=== PATIENT | female | born 1935 | race Caucasian/White ===

== ENCOUNTER 2022-12-11 14:04 | Emergency (ER) | payer MEDICARE ==
[2022-12-11] MEDS ORDERED: Acetaminophen 500 MG TAB ONE (15:01)
== END 2022-12-11 17:16 ==
LOC: ERS 14:04
DX: S63.651A Sprain of metacarpophalangeal joint of left index finger, initial encounter (principal); I12.9 Hypertensive chronic kidney disease with stage 1 through stage 4 chronic kidney disease, or unspecified chronic kidney disease; N18.9 Chronic kidney disease, unspecified; W05.0XXA Fall from non-moving wheelchair, initial encounter; Z79.01 Long term (current) use of anticoagulants; Z79.899 Other long term (current) drug therapy
CPT/HCPCS: 70450; 72125

== ENCOUNTER 2023-03-11 08:02 | Inpatient (IN) | payer MEDICARE, MEDICAID ==
[2023-03-11] MEDS ORDERED: Aspirin Chewable 81 MG TAB ONE (08:23)
[2023-03-11] MEDS ORDERED: Iopamidol-370 76% 500 ML MDV (1 ML CHARGE) ONE (08:34)
[2023-03-11 08:50] LABS: Hemoglobin 14.5 g/dL (12.0-16.0); Mean Corpuscular HGB CONC 33.1 g/dL (32.0-36.0); Mean Corpuscular Volume 96.6 fl (78.0-98.0); Platelet Count 186 10x3/uL (130-400); RBC Distribution Width 12.3 % (11.5-14.5); Red Blood Cell (RBC) Count 4.53 mill/uL (4.20-5.40); White Blood Cell (WBC) Count 14.9 10x3/uL (4.8-10.8)
[2023-03-11 08:57] LABS: INR-International Normal Ratio 1.4; Prothrombin Time 17.6 sec (12.0-14.7)
[2023-03-11 08:58] LABS: PTT 37.6 sec (22.9-36.1)
[2023-03-11 09:12] LABS: Band 24 % (5-11); Lymphocytes 12 % (21-51); MDiff Complete? YES; Monocytes 7 % (0-10); Neutrophil 57 % (42-75); RBC Morphology Normal
[2023-03-11 09:14] LABS: ALT (SGPT) 13 U/L (8-55); AST (SGOT) 25 U/L (5-34); Albumin 3.7 g/dL (3.4-4.8); Alkaline Phosphatase 105 U/L (40-110); Anion Gap 17 mmol/L (10-20); BUN (Urea Nitrogen) 44 mg/dL (9.8-20.1); Bilirubin, Total 1.2 mg/dL (0.2-1.2); Calc. Creatinine Clearance 0 mL/min (70-130); Calcium 9.9 mg/dL (7.8-10.44); Carbon Dioxide 17 mmol/L (23-31); Chloride 105 mmol/L (98-107); Estimated GFR 35; Globulin 3.1 g/dL (2.4-3.5); Glucose 112 mg/dL (83-110); Potassium 4.1 mmol/L (3.5-5.1); Protein, Total 6.8 g/dL (5.8-8.1); Sodium 135 mmol/L (136-145)
[2023-03-11 09:27] LABS: CKMB 1.1 ng/mL (0-6.6)
[2023-03-11] MEDS ORDERED: Cefepime 2 GM VIAL ONE (09:56)
[2023-03-11] MEDS ORDERED: VANCOMYCIN 1.25 GM/250 ML BAG 1.25 GM in Premix Bag 1 BAG IVPB SCH (10:15)
[2023-03-11] MEDS ORDERED: guaiFENesin/Codeine 200 mg/20 mg 10 ml Cup PO PRN (12:17)
[2023-03-11 12:32] LABS: Troponin I 0.165 ng/mL (< 0.028)
[2023-03-11] MEDS ORDERED: Digoxin 0.5 MG/2 ML AMP SLOW IVP SCH (13:30)
[2023-03-11] MEDS ORDERED: Digoxin 0.5 MG/2 ML AMP ONE (13:33)
[2023-03-11] MEDS ORDERED: Acetaminophen/Codeine 30-300mg Tablet ONE (13:34)
[2023-03-11] MEDS: Acetaminophen/Codeine 30-300mg Tablet PO PRN (13:44)
[2023-03-11] MEDS ORDERED: Lorazepam 2 MG/ML VIAL SLOW IVP SCH (14:00)
[2023-03-11] MEDS ORDERED: Diltiazem 125 MG in Sodium Chloride 0.9% 100 ML IVPB SCH (14:00)
[2023-03-11] MEDS: Sodium Chloride 0.9% 1,000 ML IV SCH ×2 (15:41→17:40)
[2023-03-11] MEDS ORDERED: Tuberculin PPD 0.1 ML VIAL I-DERMAL SCH ×2 (16:45→17:00)
[2023-03-11] MEDS ORDERED: Vancomycin Dose by Levels Sliding Scale (Wt <71) FS SCH (17:30)
[2023-03-11 18:05] LABS: Troponin I 0.306 ng/mL (< 0.028)
[2023-03-11 19:18] LABS: HBSAg Index 0.27 S/CO (0-0.99); HIV (1/2) Antibody/Antigen Non-Reactive (NonReactive); HIV 1/2 INDEX 0.26 S/CO (<1.00); Hep B Surf Ag Non-Reactive S/CO (NonReactive); Hep C IgG Ab Non-Reactive S/CO (NonReactive); Hep C Index 0.06 S/CO (0-0.79)
[2023-03-11] MEDS ORDERED: Vancomycin 1 GM in Premix Bag 1 BAG IVPB SCH (21:00)
[2023-03-11] MEDS ORDERED: Famotidine 20 MG TAB PO SCH (21:00)
[2023-03-11] MEDS: Cefepime 1 GM in Sodium Chloride 0.9% 100 ML IVPB SCH (21:59)
[2023-03-11] MEDS: Diltiazem HCl SR 60 mg Capsule PO SCH (22:00)
[2023-03-11] MEDS: Apixaban 2.5 MG TAB PO SCH (22:00)
[2023-03-11] MEDS: Atorvastatin Calcium 20 MG TAB PO SCH (22:00)
[2023-03-12 06:29] LABS: #Lymphocytes 0.8 thou/uL (1.20-3.40); #Monocytes 1.4 thou/uL (0.11-0.59); #Neutrophils 15.4 thou/uL (1.40-6.50); %Eosinophils 0.1 % (0.0-10.0); %Lymphocytes 4.4 % (21.0-51.0); %Monocytes 7.7 % (0.0-10.0); %Neutrophils 87.8 % (42.0-75.0); Hemoglobin 14.2 g/dL (12.0-16.0); Mean Corpuscular Hemoglobin 32.6 pg (27.0-31.0); Mean Corpuscular Volume 95.8 fl (78.0-98.0); Platelet Count 152 10x3/uL (130-400); RBC Distribution Width 12.3 % (11.5-14.5); Red Blood Cell (RBC) Count 4.35 mill/uL (4.20-5.40); White Blood Cell (WBC) Count 17.5 10x3/uL (4.8-10.8)
[2023-03-12 06:51] LABS: Anion Gap 15 mmol/L (10-20); BUN (Urea Nitrogen) 39 mg/dL (9.8-20.1); Calc. Creatinine Clearance 29 mL/min (70-130); Calcium 9.8 mg/dL (7.8-10.44); Carbon Dioxide 20 mmol/L (23-31); Chloride 108 mmol/L (98-107); Estimated GFR 45; Glucose 120 mg/dL (83-110); Potassium 3.8 mmol/L (3.5-5.1); Sodium 139 mmol/L (136-145)
[2023-03-12] MEDS: Apixaban 2.5 MG TAB PO SCH ×2 (07:56→21:28)
[2023-03-12] MEDS: Acetaminophen/Codeine 30-300mg Tablet PO PRN ×2 (07:56→21:26)
[2023-03-12] MEDS: Famotidine 20 MG TAB PO SCH (07:57)
[2023-03-12] MEDS: Diltiazem HCl SR 60 mg Capsule PO SCH ×2 (08:06→21:26)
[2023-03-12] MEDS: Cefepime 1 GM in Sodium Chloride 0.9% 100 ML IVPB SCH (08:07)
[2023-03-12] MEDS: Sodium Chloride 0.9% 1,000 ML IV SCH (08:07)
[2023-03-12] MEDS ORDERED: DorzolamidE/Timolol 2%/0.5% Ophth Soln 10 ml Bottle EA EYE SCH (21:00)
[2023-03-12] MEDS: Atorvastatin Calcium 20 MG TAB PO SCH (21:28)
[2023-03-12] MEDS: Artificial Tear Sol 15 ML BOT EA EYE SCH (21:29)
[2023-03-12] MEDS: Brimonidine Tartrate 0.2% Ophth Soln 5 ml Bottle EA EYE SCH (21:30)
[2023-03-12] MEDS: Dorzolamide HCl 2% Ophth Soln 10 ml Bottle EA EYE SCH (21:39)
[2023-03-13 00:43] LABS: Vancomycin, Random 7.8 ug/mL (See Comment)
[2023-03-13] MEDS ORDERED: Vancomycin HCl 750 MG in Sodium Chloride 0.9% 250 ML 250 ML IVPB SCH (01:15)
[2023-03-13] MEDS ORDERED: Sodium Chloride For Inhalation 0.9% 3 ML NEB ONE (07:33)
[2023-03-13] MEDS ORDERED: Diltiazem 125 MG in Sodium Chloride 0.9% 100 ML IVPB SCH (09:07)
[2023-03-13] MEDS: Artificial Tear Sol 15 ML BOT EA EYE SCH ×4 (09:55→20:10)
[2023-03-13] MEDS: Brimonidine Tartrate 0.2% Ophth Soln 5 ml Bottle EA EYE SCH ×2 (09:55→20:11)
[2023-03-13] MEDS: Cefepime 1 GM in Sodium Chloride 0.9% 100 ML IVPB SCH (09:56)
[2023-03-13] MEDS: Dorzolamide HCl 2% Ophth Soln 10 ml Bottle EA EYE SCH ×2 (09:58→20:12)
[2023-03-13] MEDS: Diltiazem HCl SR 60 mg Capsule PO SCH ×2 (10:10→20:09)
[2023-03-13] MEDS: Famotidine 20 MG TAB PO SCH (10:10)
[2023-03-13] MEDS: Apixaban 2.5 MG TAB PO SCH ×2 (10:10→20:10)
[2023-03-13] MEDS: Acetaminophen/Codeine 30-300mg Tablet PO PRN ×2 (10:38→20:09)
[2023-03-13] MEDS: hydrALAZINE 10 MG TAB PO PRN (17:05)
[2023-03-13] MEDS: Atorvastatin Calcium 20 MG TAB PO SCH (20:10)
[2023-03-13] MEDS ORDERED: Diltiazem HCl SR 90 mg Capsule PO SCH (21:00)
[2023-03-14] MEDS: Sodium Chloride 0.9% 1,000 ML IV SCH ×2 (00:02→20:40)
[2023-03-14 00:56] LABS: Vancomycin, Trough 7.4 ug/mL
[2023-03-14] MEDS ORDERED: Vancomycin HCl 750 MG in Sodium Chloride 0.9% 250 ML 250 ML IVPB SCH (01:00)
[2023-03-14] MEDS: Acetaminophen/Codeine 30-300mg Tablet PO PRN ×3 (03:26→20:27)
[2023-03-14 04:42] LABS: #Lymphocytes 0.9 thou/uL (1.20-3.40); #Monocytes 1.2 thou/uL (0.11-0.59); %Basophils 0.1 % (0.0-1.0); %Eosinophils 0.1 % (0.0-10.0); %Lymphocytes 6.5 % (21.0-51.0); %Monocytes 8.3 % (0.0-10.0); Mean Corpuscular HGB CONC 33.6 g/dL (32.0-36.0); Mean Corpuscular Hemoglobin 32.8 pg (27.0-31.0); Mean Corpuscular Volume 97.6 fl (78.0-98.0); Mean Platelet Volume 9.7 fL (7.4-10.4); Platelet Count 175 10x3/uL (130-400); RBC Distribution Width 12.3 % (11.5-14.5); Red Blood Cell (RBC) Count 3.68 mill/uL (4.20-5.40); White Blood Cell (WBC) Count 14.1 10x3/uL (4.8-10.8)
[2023-03-14 05:11] LABS: Anion Gap 14 mmol/L (10-20); BUN (Urea Nitrogen) 39 mg/dL (9.8-20.1); Calc. Creatinine Clearance 41 mL/min (70-130); Calcium 9.4 mg/dL (7.8-10.44); Carbon Dioxide 20 mmol/L (23-31); Chloride 110 mmol/L (98-107); Estimated GFR 51; Glucose 93 mg/dL (83-110); Potassium 3.7 mmol/L (3.5-5.1); Sodium 140 mmol/L (136-145)
[2023-03-14] MEDS ORDERED: READ PPD TEST SITE PO SCH (09:00)
[2023-03-14] MEDS: Famotidine 20 MG TAB PO SCH (09:38)
[2023-03-14] MEDS: Brimonidine Tartrate 0.2% Ophth Soln 5 ml Bottle EA EYE SCH ×2 (09:39→20:31)
[2023-03-14] MEDS: Apixaban 2.5 MG TAB PO SCH ×2 (09:39→20:26)
[2023-03-14] MEDS: Artificial Tear Sol 15 ML BOT EA EYE SCH ×4 (09:39→20:31)
[2023-03-14] MEDS: Dorzolamide HCl 2% Ophth Soln 10 ml Bottle EA EYE SCH ×2 (09:40→21:04)
[2023-03-14] MEDS: Cefepime 1 GM in Sodium Chloride 0.9% 100 ML IVPB SCH (09:42)
[2023-03-14] MEDS: hydrALAZINE 10 MG TAB PO PRN (14:11)
[2023-03-14] MEDS ORDERED: hydrALAZINE 25 MG TAB PO SCH (15:00)
[2023-03-14] MEDS: ALPRAZolam 0.25 MG TAB PO PRN (16:22)
[2023-03-14] MEDS: hydrALAZINE 25 MG TAB PO SCH (20:20)
[2023-03-14] MEDS: Atorvastatin Calcium 20 MG TAB PO SCH (20:27)
[2023-03-14 21:12] LABS: QuantiFERON-TB Gold Plus Negative (Negative)
[2023-03-15 00:24] LABS: Vancomycin, Random 10.8 ug/mL (See Comment)
[2023-03-15] MEDS: Acetaminophen/Codeine 30-300mg Tablet PO PRN ×3 (02:07→19:08)
[2023-03-15] MEDS: Vancomycin 1 GM in Premix Bag 1 BAG IVPB SCH (02:08)
[2023-03-15] MEDS: ALPRAZolam 0.25 MG TAB PO PRN (03:58)
[2023-03-15] MEDS: Senokot S 8.6-50 MG TAB PO PRN (04:03)
[2023-03-15 04:51] LABS: #Lymphocytes 0.9 thou/uL (1.20-3.40); #Monocytes 1.6 thou/uL (0.11-0.59); #Neutrophils 12.8 thou/uL (1.40-6.50); %Basophils 0.1 % (0.0-1.0); %Eosinophils 0.2 % (0.0-10.0); %Lymphocytes 5.6 % (21.0-51.0); %Monocytes 10.3 % (0.0-10.0); %Neutrophils 83.8 % (42.0-75.0); Hemoglobin 13.4 g/dL (12.0-16.0); Mean Corpuscular Hemoglobin 33.5 pg (27.0-31.0); Mean Corpuscular Volume 98.6 fl (78.0-98.0); Mean Platelet Volume 9.2 fL (7.4-10.4); Platelet Count 196 10x3/uL (130-400); RBC Distribution Width 12.3 % (11.5-14.5); Red Blood Cell (RBC) Count 3.98 mill/uL (4.20-5.40); White Blood Cell (WBC) Count 15.3 10x3/uL (4.8-10.8)
[2023-03-15 05:15] LABS: Anion Gap 13 mmol/L (10-20); BUN (Urea Nitrogen) 34 mg/dL (9.8-20.1); Calc. Creatinine Clearance 39 mL/min (70-130); Calcium 9.8 mg/dL (7.8-10.44); Carbon Dioxide 20 mmol/L (23-31); Chloride 109 mmol/L (98-107); Estimated GFR 59; Glucose 112 mg/dL (83-110); Potassium 3.5 mmol/L (3.5-5.1); Sodium 138 mmol/L (136-145)
[2023-03-15] MEDS: hydrALAZINE 25 MG TAB PO SCH ×3 (10:15→21:04)
[2023-03-15] MEDS: Famotidine 20 MG TAB PO SCH (10:15)
[2023-03-15] MEDS: Dorzolamide HCl 2% Ophth Soln 10 ml Bottle EA EYE SCH ×2 (10:16→21:10)
[2023-03-15] MEDS: Apixaban 2.5 MG TAB PO SCH ×2 (10:16→21:04)
[2023-03-15] MEDS: Cefepime 1 GM in Sodium Chloride 0.9% 100 ML IVPB SCH ×2 (10:16→21:06)
[2023-03-15] MEDS: Brimonidine Tartrate 0.2% Ophth Soln 5 ml Bottle EA EYE SCH ×2 (10:17→21:08)
[2023-03-15] MEDS: Artificial Tear Sol 15 ML BOT EA EYE SCH ×4 (10:17→21:11)
[2023-03-15] MEDS: Sodium Chloride 0.9% 1,000 ML IV SCH (10:20)
[2023-03-15] MEDS ORDERED: Furosemide 20 MG/2 ML VIAL SLOW IVP SCH (13:00)
[2023-03-15] MEDS: methylPREDNISolone Sod Succ 40 MG VIAL IVP SCH ×2 (13:39→21:03)
[2023-03-15] MEDS: Atorvastatin Calcium 20 MG TAB PO SCH (21:04)
[2023-03-16] MEDS: methylPREDNISolone Sod Succ 40 MG VIAL IVP SCH ×4 (02:55→20:50)
[2023-03-16] MEDS: Vancomycin 1 GM in Premix Bag 1 BAG IVPB SCH (02:55)
[2023-03-16] MEDS: Acetaminophen/Codeine 30-300mg Tablet PO PRN ×4 (04:22→20:52)
[2023-03-16 09:03] LABS: #Lymphocytes 0.4 thou/uL (1.20-3.40); #Monocytes 0.2 thou/uL (0.11-0.59); %Basophils 0.3 % (0.0-1.0); %Lymphocytes 4.2 % (21.0-51.0); %Monocytes 1.8 % (0.0-10.0); %Neutrophils 93.7 % (42.0-75.0); Hemoglobin 12.8 g/dL (12.0-16.0); Mean Corpuscular HGB CONC 33.4 g/dL (32.0-36.0); Mean Corpuscular Hemoglobin 32.6 pg (27.0-31.0); Mean Corpuscular Volume 97.7 fl (78.0-98.0); Mean Platelet Volume 8.8 fL (7.4-10.4); Platelet Count 223 10x3/uL (130-400); RBC Distribution Width 12.5 % (11.5-14.5); Red Blood Cell (RBC) Count 3.93 mill/uL (4.20-5.40); White Blood Cell (WBC) Count 9.7 10x3/uL (4.8-10.8)
[2023-03-16 09:48] LABS: Anion Gap 16 mmol/L (10-20); BUN (Urea Nitrogen) 40 mg/dL (9.8-20.1); Calc. Creatinine Clearance 32 mL/min (70-130); Carbon Dioxide 17 mmol/L (23-31); Chloride 109 mmol/L (98-107); Estimated GFR 49; Glucose 193 mg/dL (83-110); Potassium 3.5 mmol/L (3.5-5.1); Sodium 138 mmol/L (136-145)
[2023-03-16] MEDS: Cefepime 1 GM in Sodium Chloride 0.9% 100 ML IVPB SCH ×2 (10:40→20:49)
[2023-03-16] MEDS: Famotidine 20 MG TAB PO SCH (10:40)
[2023-03-16] MEDS: hydrALAZINE 25 MG TAB PO SCH ×3 (10:40→20:51)
[2023-03-16] MEDS: Apixaban 2.5 MG TAB PO SCH ×2 (10:41→20:51)
[2023-03-16] MEDS: Dorzolamide HCl 2% Ophth Soln 10 ml Bottle EA EYE SCH ×2 (10:51→20:46)
[2023-03-16] MEDS: Artificial Tear Sol 15 ML BOT EA EYE SCH ×4 (10:51→20:46)
[2023-03-16] MEDS: Brimonidine Tartrate 0.2% Ophth Soln 5 ml Bottle EA EYE SCH ×2 (10:51→20:46)
[2023-03-16] MEDS: ALPRAZolam 0.25 MG TAB PO PRN (11:07)
[2023-03-16] MEDS: Sodium Chloride 0.9% 1,000 ML IV SCH (14:02)
[2023-03-16] MEDS ORDERED: Dextrose 50% Abboject 50 ML SYRINGE SLOW IVP PRN (14:06)
[2023-03-16] MEDS ORDERED: Dextrose 5% in Water 1,000 ML IV PRN (14:06)
[2023-03-16] MEDS: HumaLOG 300 UNITS/3 ML VIAL SC PRN (18:19)
[2023-03-16] MEDS: Atorvastatin Calcium 20 MG TAB PO SCH (20:51)
[2023-03-17 01:16] LABS: Vancomycin, Trough 20.9 ug/mL
[2023-03-17] MEDS: Vancomycin HCl 750 MG in Sodium Chloride 0.9% 250 ML 250 ML IVPB SCH (02:13)
[2023-03-17] MEDS: methylPREDNISolone Sod Succ 40 MG VIAL IVP SCH ×4 (02:14→21:55)
[2023-03-17] MEDS: hydrALAZINE 25 MG TAB PO SCH ×3 (08:59→22:00)
[2023-03-17] MEDS: Apixaban 2.5 MG TAB PO SCH ×2 (08:59→21:58)
[2023-03-17] MEDS: Famotidine 20 MG TAB PO SCH (09:00)
[2023-03-17] MEDS: Brimonidine Tartrate 0.2% Ophth Soln 5 ml Bottle EA EYE SCH ×2 (09:01→22:22)
[2023-03-17] MEDS: Artificial Tear Sol 15 ML BOT EA EYE SCH ×4 (09:02→22:22)
[2023-03-17] MEDS: Dorzolamide HCl 2% Ophth Soln 10 ml Bottle EA EYE SCH ×2 (09:02→22:22)
[2023-03-17] MEDS: Cefepime 1 GM in Sodium Chloride 0.9% 100 ML IVPB SCH ×2 (09:15→22:01)
[2023-03-17] MEDS: Sodium Chloride 0.9% 1,000 ML IV SCH (09:15)
[2023-03-17] MEDS: ALPRAZolam 0.25 MG TAB PO PRN ×2 (09:15→21:59)
[2023-03-17] MEDS: Acetaminophen/Codeine 30-300mg Tablet PO PRN ×2 (14:03→21:58)
[2023-03-17] MEDS: Atorvastatin Calcium 20 MG TAB PO SCH ×2 (21:58→22:00)
[2023-03-18] MEDS: methylPREDNISolone Sod Succ 40 MG VIAL IVP SCH ×4 (02:19→21:14)
[2023-03-18] MEDS: Vancomycin HCl 750 MG in Sodium Chloride 0.9% 250 ML 250 ML IVPB SCH (02:19)
[2023-03-18] MEDS: Acetaminophen 325 MG TAB PO PRN (05:19)
[2023-03-18] MEDS: ALPRAZolam 0.25 MG TAB PO PRN ×2 (05:19→21:20)
[2023-03-18] MEDS: hydrALAZINE 25 MG TAB PO SCH ×4 (07:58→21:19)
[2023-03-18] MEDS: Brimonidine Tartrate 0.2% Ophth Soln 5 ml Bottle EA EYE SCH ×2 (09:03→21:21)
[2023-03-18] MEDS: Cefepime 1 GM in Sodium Chloride 0.9% 100 ML IVPB SCH ×2 (09:03→21:14)
[2023-03-18] MEDS: Artificial Tear Sol 15 ML BOT EA EYE SCH ×4 (09:04→21:18)
[2023-03-18] MEDS: Famotidine 20 MG TAB PO SCH (09:05)
[2023-03-18] MEDS: Apixaban 2.5 MG TAB PO SCH ×2 (09:05→21:18)
[2023-03-18] MEDS: Dorzolamide HCl 2% Ophth Soln 10 ml Bottle EA EYE SCH ×2 (09:06→21:24)
[2023-03-18] MEDS: Senokot S 8.6-50 MG TAB PO PRN (09:30)
[2023-03-18] MEDS: Atorvastatin Calcium 20 MG TAB PO SCH (21:19)
[2023-03-18] MEDS: Acetaminophen/Codeine 30-300mg Tablet PO PRN (21:20)
[2023-03-19] MEDS: hydrALAZINE 10 MG TAB PO PRN ×2 (01:11→06:06)
[2023-03-19] MEDS: Acetaminophen/Codeine 30-300mg Tablet PO PRN ×3 (01:12→20:01)
[2023-03-19] MEDS: methylPREDNISolone Sod Succ 40 MG VIAL IVP SCH ×3 (03:50→15:04)
[2023-03-19] MEDS: Famotidine 20 MG TAB PO SCH (09:17)
[2023-03-19] MEDS: Apixaban 2.5 MG TAB PO SCH ×2 (09:17→20:03)
[2023-03-19] MEDS: hydrALAZINE 25 MG TAB PO SCH ×3 (09:17→20:02)
[2023-03-19] MEDS: Cefepime 1 GM in Sodium Chloride 0.9% 100 ML IVPB SCH (09:18)
[2023-03-19] MEDS: Brimonidine Tartrate 0.2% Ophth Soln 5 ml Bottle EA EYE SCH ×2 (09:19→20:05)
[2023-03-19] MEDS: Artificial Tear Sol 15 ML BOT EA EYE SCH ×4 (09:19→20:04)
[2023-03-19] MEDS: Dorzolamide HCl 2% Ophth Soln 10 ml Bottle EA EYE SCH ×2 (09:19→20:04)
[2023-03-19 10:38] VITALS: BMI 21.6
[2023-03-19] MEDS ORDERED: Losartan 25 MG TAB PO SCH (12:57)
[2023-03-19] MEDS: ALPRAZolam 0.25 MG TAB PO PRN (12:59)
[2023-03-19] MEDS ORDERED: Furosemide 40 MG/4 ML VIAL SLOW IVP SCH (14:15)
[2023-03-19] MEDS: HumaLOG 300 UNITS/3 ML VIAL SC PRN (17:10)
[2023-03-19] MEDS: Cefdinir 300 MG CAP PO SCH (20:03)
[2023-03-19] MEDS: Atorvastatin Calcium 20 MG TAB PO SCH (20:03)
[2023-03-20] MEDS: ALPRAZolam 0.25 MG TAB PO PRN ×3 (00:31→21:23)
[2023-03-20] MEDS: Acetaminophen/Codeine 30-300mg Tablet PO PRN ×4 (00:31→21:23)
[2023-03-20] MEDS: Furosemide 40 MG/4 ML VIAL SLOW IVP SCH ×2 (04:56→13:23)
[2023-03-20 08:36] LABS: Anion Gap 15 mmol/L (10-20); BUN (Urea Nitrogen) 67 mg/dL (9.8-20.1); Calc. Creatinine Clearance 24 mL/min (70-130); Calcium 9.5 mg/dL (7.8-10.44); Carbon Dioxide 21 mmol/L (23-31); Chloride 107 mmol/L (98-107); Estimated GFR 35; Glucose 173 mg/dL (83-110); Potassium 3.3 mmol/L (3.5-5.1); Sodium 140 mmol/L (136-145)
[2023-03-20] MEDS: hydrALAZINE 25 MG TAB PO SCH ×3 (09:02→21:06)
[2023-03-20] MEDS: DULoxetine 30 MG CAP PO SCH (09:02)
[2023-03-20] MEDS: Cefdinir 300 MG CAP PO SCH (09:03)
[2023-03-20] MEDS: Famotidine 20 MG TAB PO SCH (09:03)
[2023-03-20] MEDS: Apixaban 2.5 MG TAB PO SCH ×2 (09:03→21:08)
[2023-03-20] MEDS: predniSONE 5 MG TAB PO SCH (09:03)
[2023-03-20] MEDS: Artificial Tear Sol 15 ML BOT EA EYE SCH ×4 (09:04→21:08)
[2023-03-20] MEDS: Dorzolamide HCl 2% Ophth Soln 10 ml Bottle EA EYE SCH ×2 (09:05→21:08)
[2023-03-20] MEDS: Brimonidine Tartrate 0.2% Ophth Soln 5 ml Bottle EA EYE SCH ×2 (09:05→21:09)
[2023-03-20] MEDS: Atorvastatin Calcium 20 MG TAB PO SCH (21:08)
[2023-03-21] MEDS: hydrALAZINE 25 MG TAB PO SCH ×2 (08:56→14:26)
[2023-03-21] MEDS: DULoxetine 30 MG CAP PO SCH (08:56)
[2023-03-21] MEDS: predniSONE 5 MG TAB PO SCH (08:56)
[2023-03-21] MEDS: Famotidine 20 MG TAB PO SCH (08:56)
[2023-03-21] MEDS: Apixaban 2.5 MG TAB PO SCH (08:56)
[2023-03-21] MEDS ORDERED: Cefdinir 300 MG CAP PO SCH (09:00)
[2023-03-21] MEDS ORDERED: cloNIDine 0.1 MG TAB PO SCH (09:00)
[2023-03-21] MEDS: Brimonidine Tartrate 0.2% Ophth Soln 5 ml Bottle EA EYE SCH (09:01)
[2023-03-21] MEDS: Artificial Tear Sol 15 ML BOT EA EYE SCH ×3 (09:01→16:59)
[2023-03-21] MEDS: Dorzolamide HCl 2% Ophth Soln 10 ml Bottle EA EYE SCH (09:01)
[2023-03-21] MEDS: ALPRAZolam 0.25 MG TAB PO PRN (14:32)
[2023-03-21] MEDS: Acetaminophen 325 MG TAB PO PRN (15:16)
[2023-03-21 15:21] VITALS: BP 152/66; TEMP 98.3
== END 2023-03-21 18:46 | DRG 871 ==
LOC: ERS 08:02 → ERHOLD 11:27 → CCU 16:57 → 2NO 03-12 18:54 → T4-A 03-17 21:46 → 2NO 03-19 01:17
PROVIDERS: ADMIT Internal Medicine; ATTEND Internal Medicine
DX: A41.9 Sepsis, unspecified organism (principal); J18.9 Pneumonia, unspecified organism; J96.01 Acute respiratory failure with hypoxia; J44.0 Chronic obstructive pulmonary disease with (acute) lower respiratory infection; R04.2 Hemoptysis; I24.8 Other forms of acute ischemic heart disease; I48.19 Other persistent atrial fibrillation; I42.9 Cardiomyopathy, unspecified; I12.9 Hypertensive chronic kidney disease with stage 1 through stage 4 chronic kidney disease, or unspecified chronic kidney disease; D63.1 Anemia in chronic kidney disease; F17.210 Nicotine dependence, cigarettes, uncomplicated; N18.30 Chronic kidney disease, stage 3 unspecified; M21.372 Foot drop, left foot; R29.6 Repeated falls; R73.9 Hyperglycemia, unspecified; T38.0X5A Adverse effect of glucocorticoids and synthetic analogues, initial encounter; Z79.01 Long term (current) use of anticoagulants; Z79.51 Long term (current) use of inhaled steroids; Z79.899 Other long term (current) drug therapy; Z86.73 Personal history of transient ischemic attack (TIA), and cerebral infarction without residual deficits; Z90.09 Acquired absence of other part of head and neck
CPT/HCPCS: 36415; 36416; 71045; 71260; 80048; 80053; 80202; 82553; 83880; 84484; 85025; 85610; 85730; 86480; 86580; 87070; 87081; 87116; 87205; 87206; 93005; 93010; 93306; 94640; 94760; 96365; 96366; 96367; 96375; J0692; J1160; J1815; J1940; J2060; J2920; J3370; J3370-JW; J3490; J7050; J7512; J7611; Q9967